=== PATIENT | male | born 1955 | race Two or more races ===

== ENCOUNTER 2018-01-18 23:30 | Emergency (ER) | payer OTHER ==
[~2018-01-18] VITALS: Ht 172.7 cm; Wt 76.2 kg
[2018-01-18] MEDS ORDERED: SIMVASTATIN40 MG PO (23:50)
[2018-01-18] MEDS ORDERED: FORTAMET1000 MG PO (23:50)
[2018-01-18] MEDS ORDERED: COZAAR100 MG PO (23:50)
== END 2018-01-19 05:01 | disposition designated cancer center or children's hospital (05) ==
LOC: ER 23:30
DX: I24.9 Acute ischemic heart disease, unspecified (principal); I44.7 Left bundle-branch block, unspecified; R10.13 Epigastric pain; R19.7 Diarrhea, unspecified; I95.9 Hypotension, unspecified